=== PATIENT | male | born 1955 | race Caucasian/White ===

== ENCOUNTER → 2018-09-20 12:42 | Outpatient (CLI) | payer OTHER, MEDICARE, SELFPAY ==
--- NOTE | 2018-09-20 | DI.CT.S_ITS ---
PROCEDURE: CT LUMBAR SPINE WO CON INDICATIONS: LUMBAR SPINE PAIN TECHNIQUE: Noncontrast 3 mm thick sections acquired from the T12 level to the sacrum. Sagittal and coronal reformats were constructed. For radiation dose reduction, the following was used: automated exposure control. COMPARISON: [facility], CR, SPINE LUMB 2 OR 3VW, 08/15/2015, 9:58. [facility], CR, L-SPINE 2-3 VIEWS, 01/08/2016, 8:28. [facility], CR, L-SPINE 2-3 VIEWS, 01/10/2016, 9:05. [facility], CR, SPINE LUMB 2 OR 3VW, 01/22/2016, 14:12. [facility], CR, SPINE LUMB 2 OR 3VW, 07/30/2016, 11:09. [facility], CR, XR THORACOLUMBAR SPINE 2 VIEWS, 09/15/2018, 10:30. [facility], CR, XR LUMBAR SPINE 2 OR 3 VIEWS, 02/04/2017, 10:17. [facility], CR, XR LUMBAR SPINE 2 OR 3 VIEWS, 04/14/2018, 11:12. FINDINGS: Image quality: Excellent. Bones: There is abnormal bony alignment with moderate levoscoliosis centered at L3. No acute vertebral body compression fractures but there is a chronic appearing anterior wedging of L1 with a slight wedging of the upper endplate of L2 seen on the lateral view projections, and this was not previously present on plain film imaging 02/04/17 (postoperative). This was present and has not progressed from the comparison plain film imaging 04/14/18. There is [id number] articulation between the adjacent endplates at L1-L2 with partial ostiolysis along the endplate margins best seen at the middle and anterior thirds of the disc spaces. No suspicious lytic or blastic bony lesions. Central spinal caliber is of normal overall caliber. No pars defects. Prior spine fusion surgery has been performed with transverse pedicle screws and vertical fixation rods crossing from L2-S1. T12-L1: Preserved disc space. No subluxation. L1-L2: Osteolytic changes involving the adjacent endplates as noted above, with sclerosis extending into the adjacent lower third of the L1 vertebral body marrow space in the upper third of the L2 vertebral body marrow space. On the frontal projection there is approximately grade 2 subluxation of L1 rightward on L2. L2-L3: Chronic moderate degenerative disc disease and spine fusion stable over time. L3-L4: Chronic moderate degenerative disc disease, spine fusion stable over time. L4-L5: Chronic degenerative changes stable, no malalignment change, stable postsurgical alignment from prior plain film imaging. L5-S1: Moderate degenerative disc disease with posterior fusion screws and rods stable over time. Soft tissues: No retroperitoneal masses or hematomas. Visualized aorta is normal in caliber. IMPRESSION: A significant change is identified at the L1-L2 disc space where prior plain film imaging in January of 2017 had shown expected appearance of the disc space and alignment between L1 and L2. The current study shows what appears to be [id number] articulation between the inferior endplate of L1 and the superior endplate of L2 with anterior wedging potentially a manifestation of compression fracture but given the associated sclerosis and mild ostiolysis infection must be considered as a potential alternative cause. Triple phase nuclear medicine bone scan may be warranted in this clinical circumstance. Through the area of current L1-L2 concern note is made of a grade 2 lateral subluxation of L1 rightward on L2. This also was not previously seen in January of 2017 by plain film appearance. Dictated by: Donny Galicia M.D. on 09/20/2018 at 16:54 Approved by: Donny Galicia M.D. on 09/20/2018 at 17:10
== END ==
PROVIDERS: Family Provider Family Medicine; PCP Family Medicine; Visit Provider Orthopaedic Surgery
DX: M54.5 Low back pain (principal); M51.37 Other intervertebral disc degeneration, lumbosacral region; M51.36 Other intervertebral disc degeneration, lumbar region; Z98.1 Arthrodesis status
CPT/HCPCS: 72131

== ENCOUNTER → 2021-05-01 08:06 | Outpatient (CLI) | payer MEDICARE, OTHER, SELFPAY | PROVIDERS: Family Provider Family Medicine; PCP Internal Medicine; Referring Provider Internal Medicine; Visit Provider Internal Medicine | DX: M75.41 Impingement syndrome of right shoulder (principal) ==

== ENCOUNTER → 2021-05-08 08:55 | Outpatient (CLI) | payer MEDICARE, OTHER, SELFPAY ==
--- NOTE | 2021-05-08 | DI.MRI.S_ITS ---
PROCEDURE: MR SHOULDER RT WO CON INDICATIONS: Impingement syndrome of right shoulder TECHNIQUE: Noncontrast oblique coronal T2 fast spin echo with fat saturation, oblique sagittal T1 spin echo and T2 fast spin echo with fat saturation, axial T1 spin echo and T2 fast spin echo with fat saturation through the shoulder. COMPARISON: None. FINDINGS: Image quality: Excellent. Rotator cuff: Moderate to advanced supraspinatus tendinopathy with small partial articular surface, small partial bursal surface, and interstitial tears. 1.2 cm coarse calcification within the supraspinatus tendon, compatible with calcific tendinopathy. Mild infraspinatus tendinopathy with articular surface tear measuring approximately 1.3 cm. Thinning of the subscapularis tendon, likely reflecting partial bursal surface tear. Sagittal images demonstrate grade 1/2 supraspinatus muscle atrophy. Bones and bursae: T2 hyperintense signal in the subchondral, posterior humeral head, compatible with subchondral edema/degenerative change. T2 hyperintense signal is also noted within the glenoid, likely reflecting subchondral edema/degenerative change. [id number] acromioclavicular joint degeneration with T2 hyperintense signal within the articulation. No os acromiale. No pathologic subacromial-subdeltoid or subcoracoid bursal fluid is present. Capsule and soft tissues: Blunting of the posterior labrum, compatible with tear. Fluid surrounds the biceps tendon, which may reflect tenosynovitis. The long head of the biceps tendon demonstrates normal location. A 2.1 x 6.6 x 2.4 cm T2 hyperintense lesion is seen in the superior subscapular recess, which may reflect joint fluid versus subcortical bursitis. Trace subacromial/subdeltoid fluid, compatible with bursitis. The coracohumeral ligament is normal in thickness. IMPRESSION: 1. Moderate to advanced supraspinatus tendinopathy with calcific tendinopathy. 2. Mild infraspinatus tendinopathy with articular surface tear as detailed above. 3. Thinning of the subscapularis tendon, likely secondary to partial bursal surface tear. 4. Fluid collection in the subacromial recess/superior subscapular recess, which likely reflects bursitis. 5. Mild subacromial/subdeltoid bursitis. 6. Biceps tenosynovitis. 7. Posterior labral tear, likely degenerative. 8. Subchondral edema of the posterior humeral head. Dictated by: Juan Francisco Fuentes M.D. on 05/08/2021 at 9:40 Approved by: Juan Francisco Fuentes M.D. on 05/08/2021 at 9:53
== END ==
PROVIDERS: Family Provider Family Medicine; PCP Internal Medicine; Referring Provider Internal Medicine; Visit Provider Internal Medicine
DX: S43.491A Other sprain of right shoulder joint, initial encounter (principal); M65.811 Other synovitis and tenosynovitis, right shoulder; M75.41 Impingement syndrome of right shoulder; M75.51 Bursitis of right shoulder
CPT/HCPCS: 73221

== ENCOUNTER 2023-03-07 15:31 | Emergency (ER) | payer MEDICARE, OTHER, SELFPAY ==
[2023-03-07] VITALS (10 sets, daily range): BP systolic 161–199; BP diastolic 79–93; PULSE 65–74; RESP 15; TEMP 37.1; O2SAT 94–99; BMI 26.6
--- NOTE | 2023-03-07 18:07 | DI.CT.S_ITS ---
PROCEDURE: CT LUMBAR SPINE W CON INDICATIONS: FIRM LUMP L PARASPINAL REGION, PREVIOUS SURGERY TECHNIQUE: After the administration of intravenous Isovue contrast, 3 mm thick sections acquired through the levels of interest. Sagittal and coronal reformats were then constructed. For radiation dose reduction, the following was used: automated exposure control. COMPARISON: [facility], CT, CT LUMBAR SPINE WO CON, 09/20/2018, 12:56. FINDINGS: Image quality: Excellent. Bones: There is moderate levoscoliosis. Multilevel degenerative disc disease and facet arthropathy. There are postsurgical changes with discectomy and posterior fusion at L2-S1. Surgical hardware is intact. There is mild lucency around the pedicular screws at L5 on the right and S1 bilaterally. There is severe degenerative disc disease at L1-L2. There is lateral subluxation of L1-L2, unchanged. Mild anterior wedge deformity of L1, also unchanged. Soft tissues: No soft tissue mass or drainable fluid collection. Prostate is enlarged. IMPRESSION: 1. Extensive postsurgical changes in lumbar spine with discectomy and posterior fusion at L2-S1. Lucency is seen surrounding the pedicular screws at L5 on the right and S1 bilaterally, concerning for loosening. 2. Severe degenerative disc disease at L1-L2 with lateral subluxation of L1-L2 and mild anterior wedge deformity of L1 vertebral body. Overall, there is no significant change since the last exam. 3. No soft tissue mass or fluid collection. Dictated by: Jaswant Young M.D. on 03/07/2023 at 19:25 Approved by: Jaswant Young M.D. on 03/07/2023 at 19:34
--- NOTE | 2023-03-07 18:12 | ED_ITS ---
HPI - Back Pain/Injury General Chief Complaint: Back Pain/Injury Stated Complaint: back pain/sent by [facility] Time Seen by Provider: 03/07/23 17:39 Source: patient History of Present Illness HPI Narrative: Patient presents from home by private vehicle for left-sided lumbar back pain and some flank numbness. Also reports sensation of constipation, but has had regular bowel movements. He has previous history of spinal fusion in his lumbar region and is in talk with his spinal surgeon about possible revision, however this has yet to be determined. He noticed a bump this morning on the left side of his back near where his hardware is located and went to the walk-in clinic. The walk-in clinic referred him to the emergency department for evaluation. Patient denies bowel or bladder incontinence, denies saddle anesthesia, denies difficulty in ambulating. His numbness is isolated over the left flank. Related Data Home Medications Medication Instructions Recorded Confirmed albuterol sulfate 90 mcg/actuation 1 puff INH PRN PRN ##0 12/24/15 03/07/23 aerosol inhaler (Ventolin HFA) aspirin 81 mg tablet,delayed 81 mg PO QDAY ##0 12/24/15 03/07/23 release fluticasone 250 mcg-salmeterol 50 1 puff INH QAM ##0 12/24/15 03/07/23 mcg/dose blistr powdr for inhalation (Advair Diskus) gabapentin 300 mg capsule 300 mg PO BID ##0 12/24/15 03/07/23 (Neurontin) hydrocodone 5 mg-acetaminophen 325 1 tab PO HS ##0 12/24/15 03/07/23 mg tablet OXYCODONE HCl (PERCOLONE) 5 - 10 mg PO Q4H PRN ##0 01/13/16 03/07/23 hydroxyzine pamoate 25 mg capsule 25 - 50 mg PO Q4H ##0 01/13/16 03/07/23 (Vistaril) Previous Rx's Medication Instructions Recorded hydroxyzine pamoate 25 mg capsule 1 - 2 cap PO Q4HP PRN #40 caps 01/13/16 oxycodone 5 mg tablet 1 - 2 tab PO Q4HP PRN #80 tabs 01/13/16 amlodipine 5 mg tablet (Norvasc) 5 mg PO HS ##30 10/18/16 dexamethasone 4 mg tablet 4 mg PO BID #10 tabs 03/07/23 methocarbamol 500 mg tablet 500 mg PO TID #30 tabs 03/07/23 Allergies Allergy/AdvReac Type Severity Reaction Status Date / Time tramadol [TRAMADOL] AdvReac Severe HEART Unverified 03/07/23 15:41 PALPITATIONS, CONFUSION WITH EXTENDED RELEASE Review of Systems Review of Systems Narrative: Negative except as noted above Patient History Social History Smoking Status: Unknown if ever smoked Smoking Status: Unknown if ever smoked alcohol intake frequency: a few times a week Substance Use Type: marijuana Exam Initial Vital Signs Initial Vital Signs: Vital Signs Temperature 98.7 F 03/07/23 15:41 Pulse Rate 69 03/07/23 15:41 Respiratory Rate 15 03/07/23 15:41 Blood Pressure 199/93 H 03/07/23 15:41 Pulse Oximetry 99 03/07/23 15:41 Oxygen Delivery Method Room Air 03/07/23 15:41 Const: Awake, alert, no acute distress, nontoxic appearing Cardiac: regular rate, regular rhythm RESP: unlabored, clear bilaterally, no wheezing GI: Atraumatic, soft, nontender, nondistended, no rebound, no guarding MSK back: No midline tenderness, firm bump over left lumbar paraspinal region. Skin: Warm, Dry, intact, no rashes Neuro: AO x3, CN II-XII grossly intact, moves all extremities, no numbness, full strength Psych: affect normal, mood normal, not suicidal, not homicidal Course Course Course Narrative: This is a well-appearing patient with flank numbness and bump in his lumbar spine after performing sciatic stretch his several days ago. He reports decreased sensation in his left flank, however his sacral region has intact tone, he is no numbness or weakness in his lower extremities, no urinary incontinence. Given the palpable bulge and history of spinal surgery we will order labs and CT imaging. Orders Ordered: ED Orders 03/07/23 18:05 CBC Auto Diff [Complete Blood Count AUTO DIFF] Stat CMP [Comprehensive Metabolic Panel] Stat CRP [C-Reactive Protein Quant] Stat Erythrocyte Sedimentation Rate Stat 03/07/23 18:07 CT lumbar spine w con Stat Discontinued Medications Dexamethasone (Dexamethasone 10 Mg/Ml Vial) 10 mg IV NOW ONE Stop: 03/07/23 18:08 Last Admin: 03/07/23 18:13 Dose: 10 mg Documented By: HARMEET Ketorolac Tromethamine (Ketorolac 30 Mg/Ml Vial) 15 mg IV NOW ONE Stop: 03/07/23 18:08 Last Admin: 03/07/23 18:14 Dose: 15 mg Documented By: HARMEET Reevaluation(s) Reevaluation #1: Laboratory work is entirely unremarkable, no elevated inflammatory markers. Patient given steroids and resting comfortably in bed. CT shows no signs of infection. There was the raised possibility of loosening around the L5 screw on the right and S1 bilaterally concerning for possible loosening. Based on clinical exam this is less likely as patient's symptoms are higher up and on the left. He was informed of his lab and imaging results, he was counseled to follow up with his spinal surgeon and to call 1st thing on Thursday for an appointment. In the interim we will give muscle relaxers and steroids. ED return precautions discussed at bedside. Patient expressed understanding of the plan and is in agreement at this time. All questions answered at the time of discharge. Vital Signs Vital signs: Vital Signs - 8 hr 03/07/23 15:41 03/07/23 17:00 03/07/23 17:02 Temperature 98.7 F Pulse Rate 69 74 66 Respiratory Rate 15 Blood Pressure 199/93 H Pulse Oximetry 99 96 95 Oxygen Delivery Method Room Air Room Air 03/07/23 17:02 03/07/23 17:30 03/07/23 17:30 Temperature Pulse Rate 71 Respiratory Rate Blood Pressure 161/79 H 168/80 H Pulse Oximetry 94 Oxygen Delivery Method 03/07/23 18:00 03/07/23 18:30 03/07/23 18:31 Temperature Pulse Rate 65 67 69 Respiratory Rate Blood Pressure Pulse Oximetry 95 94 96 Oxygen Delivery Method 03/07/23 18:31 03/07/23 19:22 03/07/23 19:24 Temperature Pulse Rate 67 65 Respiratory Rate Blood Pressure 184/85 H Pulse Oximetry 98 96 Oxygen Delivery Method 03/07/23 19:24 03/07/23 19:30 Temperature Pulse Rate 69 Respiratory Rate Blood Pressure 185/91 H Pulse Oximetry 97 Oxygen Delivery Method MDM - Back Pain/Injury Lab Data 03/07/23 18:05 03/07/23 18:05 Labs: Lab Results 03/07/23 Range/Units 18:05 WBC 7.4 (4.5-11.0) X10^3/uL RBC 4.25 L (4.5-5.9) X10^6/uL Hgb 13.0 L (13.5-17.5) g/dL Hct 37.6 L (41-53) % MCV 88.5 (80-100) fL MCH 30.6 (26-34) PG MCHC 34.6 (30-36) % RDW 13.3 (11.6-14.8) % Plt Count 181 (150-400) X10^3/uL Neut % (Auto) 62.4 (50-75) % Lymph % (Auto) 21.2 L (25-40) % [place] % (Auto) 9.3 (3-14) % Eos % (Auto) 6.0 H (2-4) % Baso % (Auto) 1.1 (0-2) % Neut # (Auto) 4600 (6518-7984) /uL Lymph # (Auto) 1600 (5273-4117) /uL [place] # (Auto) 700 (0-900) /uL Eos # (Auto) 400 (0-450) /uL Baso # (Auto) 100 (0-100) /uL ESR 5 (0-15) MM/HR Sodium 138 (137-145) mmol/L Potassium 3.9 (3.4-5.1) mmol/L Chloride 105 (98-107) mmol/L Carbon Dioxide 28 (22-32) mmol/L BUN 18 (9-20) mg/dL Creatinine 0.91 (0.66-1.25) mg/dL Estimated GFR > 60 (>60) mL/min BUN/Creatinine Ratio 19.8 (6-22) Glucose 106 (80-110) mg/dL Calcium 9.5 (8.4-10.2) mg/dL Total Bilirubin 0.4 (0.2-1.3) mg/dL AST 30 (17-59) IU/L ALT 29 (<50) IU/L Alkaline Phosphatase 40 (38-126) U/L C-Reactive Protein < 0.5 (<1.0) mg/dL Total Protein 6.4 (6.3-8.2) g/dL Albumin 3.9 (3.5-5.0) g/dL Globulin 2.5 (1.7-4.1) g/dL Albumin/Globulin Ratio 1.6 (1.0-2.8) Discharge Plan Departure Patient Disposition: Home Clinical Impression: Lumbar back pain Instructions: DI for Lumbar Radiculopathy Prescriptions: New dexamethasone 4 mg tablet 4 mg PO BID Qty: 10 0RF methocarbamol 500 mg tablet 500 mg PO TID Qty: 30 0RF No Action fluticasone propion-salmeterol [Advair Diskus] 250 MCG/50 MCG blister with device 1 puff INH QAM Qty: 0 albuterol sulfate [Ventolin HFA] 90 MCG/PUFF HFA aerosol inhaler 1 puff INH PRN PRNQty: 0 gabapentin [Neurontin] 300 MG capsule 300 mg PO BID Qty: 0 hydrocodone-acetaminophen 5 MG/325 MG tablet 1 tab PO HS Qty: 0 aspirin 81 MG tablet,delayed release (DR/EC) 81 mg PO QDAY Qty: 0 OXYCODONE HCl (PERCOLONE) 5 - 10 mg PO Q4H PRNQty: 0 hydroxyzine pamoate [Vistaril] 25 MG capsule 25 - 50 mg PO Q4H Qty: 0 oxycodone 5 MG tablet 1 - 2 tab PO Q4HP PRNQty: 80 0RF hydroxyzine pamoate 25 MG capsule 1 - 2 cap PO Q4HP PRNQty: 40 0RF amlodipine [Norvasc] 5 MG tablet 5 mg PO HS Qty: 30 0RF Referrals: Hemant Londono MD [Primary Care Provider] - Stand Alone Forms: Patient Portal/API
[2023-03-07] MEDS: DEXAMETHASONE 10 MG/ML VIAL IV (18:13)
[2023-03-07] MEDS: KETOROLAC 30 MG/ML VIAL 15 MG IV (18:14)
[2023-03-07 18:15] LABS: Add Manual Diff / Slide Review NO; Basophils Absolute Auto 100 /uL (0-100); Basophils Percent Auto 1.1 % (0-2); Eosinophils Absolute Auto 400 /uL (0-450); Hematocrit 37.6 % (41-53); Lymphocytes Absolute Auto 1600 /uL (1100-4500); Lymphocytes Percent Auto 21.2 % (25-40); Mean Corpuscular HGB Conc 34.6 % (30-36); Mean Corpuscular Hemoglobin 30.6 PG (26-34); Mean Corpuscular Volume 88.5 fL (80-100); Monocytes Absolute Auto 700 /uL (0-900); Monocytes Percent Auto 9.3 % (3-14); Neutrophils Absolute Auto 4600 /uL (1500-7000); Neutrophils Percent Auto 62.4 % (50-75); Platelet Count 181 X10^3/uL (150-400); Red Blood Cell Count 4.25 X10^6/uL (4.5-5.9); Red Cell Distribution Width 13.3 % (11.6-14.8); White Blood Cell Count 7.4 X10^3/uL (4.5-11.0)
[2023-03-07 18:34] LABS: Alanine Aminotransferase 29 IU/L (<50); Albumin 3.9 g/dL (3.5-5.0); Albumin Globulin Ratio 1.6 (1.0-2.8); Alkaline Phosphatase 40 U/L (38-126); Aspartate Aminotransferase 30 IU/L (17-59); BUN Creatinine Ratio 19.8 (6-22); Bilirubin Total 0.4 mg/dL (0.2-1.3); Blood Urea Nitrogen 18 mg/dL (9-20); C-Reactive Protein Quant < 0.5 mg/dL (<1.0); Calcium 9.5 mg/dL (8.4-10.2); Carbon Dioxide 28 mmol/L (22-32); Chloride 105 mmol/L (98-107); Estimated Glomerular Filt Rate > 60 mL/min (>60); Globulin 2.5 g/dL (1.7-4.1); Glucose 106 mg/dL (80-110); HEMOLYSIS < 15 (0-50); Potassium 3.9 mmol/L (3.4-5.1); Sodium 138 mmol/L (137-145); Total Protein 6.4 g/dL (6.3-8.2)
[2023-03-07 18:59] LABS: Erythrocyte Sedimentation Rate 5 MM/HR (0-15)
== END 2023-03-07 20:02 | disposition home or self-care (01) ==
PROVIDERS: Emergency Provider Emergency Medicine; Family Provider Family Medicine; PCP Internal Medicine
DX: M54.50 Low back pain, unspecified (principal)
CPT/HCPCS: 36415; 72132; 80053; 85025; 85651; 86140; 96374; 96375; 99284; J1100; J1885; Q9967